=== PATIENT | male | born 1960 | race Caucasian/White ===

== ENCOUNTER 2021-04-22 06:50 | Inpatient (IN) | payer BC, OTHER ==
[~2021-04-22] VITALS: Ht 175.2 cm; Wt 94.5 kg
[2021-04-22 07:12] VITALS: BP 125/89
[2021-04-22 08:00] VITALS: BP 128/82
[2021-04-22 08:05] LABS: BASO % 0.2 % (0.0-1.0); LYMPH # 0.5 10*3/uL (1.3-4.4); LYMPH % 9.1 % (27.0-41.0); MEAN CELL VOLUME 84.7 fl (80.0-94.0); MEAN CORPUSCULAR HGB 29.4 pg (27.0-31.0); MEAN CORPUSCULAR HGB CONC 34.7 g/dl (33.0-37.0); MEAN PLATELET VOLUME 11.9 fl (9.6-12.3); MONO # 0.6 10*3/uL (0.1-1.0); MONO % 11.8 % (3.0-9.0); NEUT # 4.1 10*3/uL (2.3-7.9); NEUT % 78.3 % (47.0-73.0); PLATELET COUNT AUTOMATED 149 10*3/uL (130-400); RED BLOOD COUNT 5.31 10*6/uL (4.50-5.90); RED CELL DISTRI WIDTH 12.4 % (0-14.5); WHITE BLOOD COUNT 5.2 10*3/uL (4.8-10.8)
[2021-04-22 08:15] LABS: ACT PARTIAL THROMBO TIME 37.5 SECONDS (20.0-32.1)
[2021-04-22 08:19] LABS: ALBUMIN 2.4 gm/dl (3.1-4.5); ALKALINE PHOSPHATASE 51 U/L (45-117); BUN 8 mg/dl (7-24); CHLORIDE 88 mmol/L (98-107); CREATININE 0.66 mg/dL (0.70-1.30); LIPASE 382 U/L (73-393); POTASSIUM 3.4 mmol/L (3.5-5.1); SGOT/AST 180 IU/L (3-35); SGPT/ALT 125 U/L (12-78); SODIUM 122 mmol/L (136-145); TOTAL PROTEIN 6.3 gm/dL (6.4-8.2)
[2021-04-22 08:20] LABS: TROPONIN I < 0.015 ng/ml (<0.045)
[2021-04-22 10:57] VITALS: BP 121/77
[2021-04-22 16:00] VITALS: BP 106/70
[2021-04-22] MEDS ORDERED: PRILOSEC20 M1 PO (19:17)
[2021-04-22 20:00] VITALS: BP 106/73; BP 128/82
[2021-04-23] VITALS: BP 101/76
[2021-04-23 00:58] LABS: ABG BASE EXCESS 3.1 mmol/L (-2.0-2.0); ARTERIAL BLOOD GAS PH 7.502 (7.35-7.45); ARTERIAL BLOOD GAS PO2 59.6 (80-90)
[2021-04-23 06:10] LABS: ALBUMIN 2.5 gm/dl (3.1-4.5); ALKALINE PHOSPHATASE 54 U/L (45-117); BUN 13 mg/dl (7-24); CHLORIDE 100 mmol/L (98-107); CHOLESTEROL 110 mg/dL (<200); CREATININE 0.85 mg/dL (0.70-1.30); LDH 639 U/L (87-241); LDL CHOLESTEROL 36 mg/dL (9-159); POTASSIUM 3.7 mmol/L (3.5-5.1); SGOT/AST 176 IU/L (3-35); SGPT/ALT 147 U/L (12-78); TOTAL PROTEIN 6.6 gm/dL (6.4-8.2); TRIGLYCERIDES 77 mg/dl (<150)
[2021-04-23 06:23] LABS: FREE T4 0.99 ng/dl (0.76-1.46)
[2021-04-23 06:29] LABS: CPK 2640 U/L (39-308); SODIUM 136 mmol/L (136-145)
[2021-04-23 07:03] LABS: BASO % 0.3 % (0.0-1.0); HEMATOCRIT 47.2 % (42.0-52.0); LYMPH # 0.9 10*3/uL (1.3-4.4); LYMPH % 13.4 % (27.0-41.0); MEAN CELL VOLUME 86.8 fl (80.0-94.0); MEAN CORPUSCULAR HGB 29.6 pg (27.0-31.0); MEAN CORPUSCULAR HGB CONC 34.1 g/dl (33.0-37.0); MEAN PLATELET VOLUME 11.4 fl (9.6-12.3); MONO # 0.8 10*3/uL (0.1-1.0); MONO % 10.8 % (3.0-9.0); NEUT # 5.2 10*3/uL (2.3-7.9); NEUT % 74.6 % (47.0-73.0); RED BLOOD COUNT 5.44 10*6/uL (4.50-5.90); RED CELL DISTRI WIDTH 12.9 % (0-14.5)
[2021-04-23 07:04] LABS: PLATELET COUNT AUTOMATED 208 10*3/uL (130-400)
[2021-04-23 08:00] VITALS: BP 112/75
[2021-04-23 08:23] LABS: VITAMIN D, 25-HYDROXY 30.9 ng/mL (30-100)
[2021-04-23 08:24] LABS: FERRITIN 1473.8 ng/mL (22.0-322.0)
[2021-04-23 10:08] LABS: ABG BASE EXCESS 0.7 mmol/L (-2.0-2.0); ARTERIAL BLOOD GAS PH 7.507 (7.35-7.45)
[2021-04-23 12:00] VITALS: BP 107/72
[2021-04-23 16:00] VITALS: BP 122/72
[2021-04-23 20:00] VITALS: BP 128/78
[2021-04-24] VITALS: BP 123/53
[2021-04-24 08:00] VITALS: BP 110/74
[2021-04-24 08:29] LABS: BASO % 0.2 % (0.0-1.0); HEMATOCRIT 48.9 % (42.0-52.0); LYMPH % 15.2 % (27.0-41.0); MEAN CELL VOLUME 89.1 fl (80.0-94.0); MEAN CORPUSCULAR HGB 29.1 pg (27.0-31.0); MEAN CORPUSCULAR HGB CONC 32.7 g/dl (33.0-37.0); MEAN PLATELET VOLUME 11.3 fl (9.6-12.3); MONO # 0.7 10*3/uL (0.1-1.0); MONO % 10.4 % (3.0-9.0); NEUT # 4.8 10*3/uL (2.3-7.9); NEUT % 72.5 % (47.0-73.0); PLATELET COUNT AUTOMATED 246 10*3/uL (130-400); RED BLOOD COUNT 5.49 10*6/uL (4.50-5.90); RED CELL DISTRI WIDTH 13.1 % (0-14.5); WHITE BLOOD COUNT 6.7 10*3/uL (4.8-10.8)
[2021-04-24 08:47] LABS: ALBUMIN 2.5 gm/dl (3.1-4.5); ALKALINE PHOSPHATASE 53 U/L (45-117); BUN 15 mg/dl (7-24); CHLORIDE 103 mmol/L (98-107); CREATININE 0.76 mg/dL (0.70-1.30); LDH 606 U/L (87-241); POTASSIUM 4.1 mmol/L (3.5-5.1); SGOT/AST 119 IU/L (3-35); SODIUM 138 mmol/L (136-145); TOTAL PROTEIN 6.5 gm/dL (6.4-8.2)
[2021-04-24 08:59] LABS: SGPT/ALT 133 U/L (12-78)
[2021-04-24 09:06] LABS: CPK 1277 U/L (39-308)
[2021-04-24 12:00] VITALS: BP 115/82
[2021-04-24 16:00] VITALS: BP 132/70
[2021-04-24 18:00] VITALS: BP 132/70
[2021-04-25] VITALS: BP 122/56
[2021-04-25 07:11] LABS: BASO % 0.2 % (0.0-1.0); HEMATOCRIT 45.3 % (42.0-52.0); LYMPH # 1.1 10*3/uL (1.3-4.4); LYMPH % 13.1 % (27.0-41.0); MEAN CELL VOLUME 86.8 fl (80.0-94.0); MEAN CORPUSCULAR HGB 29.1 pg (27.0-31.0); MEAN CORPUSCULAR HGB CONC 33.6 g/dl (33.0-37.0); MEAN PLATELET VOLUME 11.1 fl (9.6-12.3); MONO # 0.6 10*3/uL (0.1-1.0); MONO % 6.4 % (3.0-9.0); NEUT # 6.9 10*3/uL (2.3-7.9); NEUT % 79.5 % (47.0-73.0); PLATELET COUNT AUTOMATED 289 10*3/uL (130-400); RED BLOOD COUNT 5.22 10*6/uL (4.50-5.90); RED CELL DISTRI WIDTH 12.9 % (0-14.5); WHITE BLOOD COUNT 8.7 10*3/uL (4.8-10.8)
[2021-04-25 07:35] LABS: CHLORIDE 100 mmol/L (98-107); POTASSIUM 3.7 mmol/L (3.5-5.1); SODIUM 136 mmol/L (136-145)
[2021-04-25 07:45] LABS: ALBUMIN 2.5 gm/dl (3.1-4.5); ALKALINE PHOSPHATASE 62 U/L (45-117); BUN 15 mg/dl (7-24); CREATININE 0.69 mg/dL (0.70-1.30); LDH 591 U/L (87-241); SGOT/AST 79 IU/L (3-35); SGPT/ALT 121 U/L (12-78); TOTAL PROTEIN 6.2 gm/dL (6.4-8.2)
[2021-04-25 07:47] LABS: CPK 667 U/L (39-308)
[2021-04-25 08:00] VITALS: BP 130/73
[2021-04-25 12:00] VITALS: BP 104/68
[2021-04-25] MEDS ORDERED: DECADRON6 M1 PO (13:41)
== END 2021-04-25 16:57 | disposition home health service (06) | DRG 871 ==
LOC: ED 06:50 → EDHOLD 10:48 → 4E 10:48
PROVIDERS: Emergency Medicine; Hospitalist; Registered Nurse; ADMIT Student in an Organized Health Care Education/Training Program; ATTEND Student in an Organized Health Care Education/Training Program
PROC: 5A09357 Assistance with Respiratory Ventilation, Less than 24 Consecutive Hours, Continuous Positive Airway Pressure (ICD-10-PCS; principal; 2021-04-22)
PROC: XW033E5 Introduction of Remdesivir Anti-infective into Peripheral Vein, Percutaneous Approach, New Technology Group 5 (ICD-10-PCS; 2021-04-22)
PROC: 5A09357 Assistance with Respiratory Ventilation, Less than 24 Consecutive Hours, Continuous Positive Airway Pressure (ICD-10-PCS; 2021-04-23)
PROC: 5A0935A Assistance with Respiratory Ventilation, Less than 24 Consecutive Hours, High Flow/Velocity Cannula (ICD-10-PCS; 2021-04-23)
PROC: 5A09357 Assistance with Respiratory Ventilation, Less than 24 Consecutive Hours, Continuous Positive Airway Pressure (ICD-10-PCS; 2021-04-24)
PROC: 5A0935A Assistance with Respiratory Ventilation, Less than 24 Consecutive Hours, High Flow/Velocity Cannula (ICD-10-PCS; 2021-04-25)
DX: A41.89 Other specified sepsis (principal); U07.1 COVID-19; J12.82 Pneumonia due to coronavirus disease 2019; J96.01 Acute respiratory failure with hypoxia; N17.1 Acute kidney failure with acute cortical necrosis; E43 Unspecified severe protein-calorie malnutrition; E87.1 Hypo-osmolality and hyponatremia; R65.20 Severe sepsis without septic shock; E86.0 Dehydration; E66.9 Obesity, unspecified; R74.01 Elevation of levels of liver transaminase levels; E87.8 Other disorders of electrolyte and fluid balance, not elsewhere classified; E87.6 Hypokalemia; R73.9 Hyperglycemia, unspecified; E83.51 Hypocalcemia; Z68.31 Body mass index [BMI] 31.0-31.9, adult

== ENCOUNTER → 2021-05-21 | Outpatient (CLI) | payer BC, OTHER ==
[~2021-05-21] MED LIST: DECADRON6 M1 PO; PRILOSEC20 M1 PO
== END | disposition home or self-care (01) ==
LOC: US 08:06
PROVIDERS: ATTEND Internal Medicine
DX: I73.9 Peripheral vascular disease, unspecified (principal); R06.02 Shortness of breath

== ENCOUNTER → 2023-04-29 | Outpatient (CLI) | payer BC | END | disposition home or self-care (01) | LOC: US 08:28 | PROVIDERS: ATTEND Internal Medicine | DX: K76.0 Fatty (change of) liver, not elsewhere classified (principal); R74.01 Elevation of levels of liver transaminase levels ==

== ENCOUNTER → 2023-05-19 | Outpatient (CLI) | payer BC | END | disposition home or self-care (01) | LOC: US 03:04 | PROVIDERS: ATTEND Urology | DX: N28.1 Cyst of kidney, acquired (principal); N40.0 Benign prostatic hyperplasia without lower urinary tract symptoms ==

== ENCOUNTER → 2023-05-29 | Outpatient (CLI) | payer BC ==
[2023-05-29 08:40] LABS: BASO # 0.1 10*3/uL (0.0-0.1); BASO % 0.9 % (0.0-1.0); EOS # 0.1 10*3/uL (0.0-0.4); EOS % 1.7 % (1.0-4.0); HEMATOCRIT 47.8 % (42.0-52.0); LYMPH # 2.2 10*3/uL (1.3-4.4); LYMPH % 32.1 % (27.0-41.0); MEAN CELL VOLUME 92.1 fl (80.0-94.0); MEAN CORPUSCULAR HGB 30.3 pg (27.0-31.0); MEAN CORPUSCULAR HGB CONC 32.8 g/dl (33.0-37.0); MEAN PLATELET VOLUME 12.1 fl (9.6-12.3); MONO # 0.8 10*3/uL (0.1-1.0); MONO % 11.6 % (3.0-9.0); NEUT # 3.7 10*3/uL (2.3-7.9); NEUT % 53.3 % (47.0-73.0); PLATELET COUNT AUTOMATED 217 10*3/uL (130-400); RED BLOOD COUNT 5.19 10*6/uL (4.50-5.90); RED CELL DISTRI WIDTH 13.4 % (0-14.5); WHITE BLOOD COUNT 6.9 10*3/uL (4.8-10.8)
[2023-05-29 09:02] LABS: ALKALINE PHOSPHATASE 66 U/L (46-116); BUN 17 mg/dl (9-23); CHLORIDE 108 mmol/L (98-107); POTASSIUM 4.3 mmol/L (3.4-5.1); SGPT/ALT 23 U/L (5-49); TOTAL PROTEIN 7.2 gm/dL (6.0-8.0)
== END | disposition home or self-care (01) ==
LOC: LAB 01:22
PROVIDERS: ATTEND Urology
DX: Z01.818 Encounter for other preprocedural examination (principal); R94.31 Abnormal electrocardiogram [ECG] [EKG]

== ENCOUNTER 2024-02-04 03:39 | Emergency (ER) | payer BC ==
[~2024-02-04] VITALS: Ht 175.2 cm; Wt 99.8 kg
[2024-02-04] MEDS ORDERED: Lidocaine Hydrochloride 10 ML SYR UR ONE ×2 (04:05→04:40)
== END 2024-02-04 05:12 | disposition short-term general hospital (02) ==
LOC: ED 03:39
DX: R33.9 Retention of urine, unspecified (principal); I10 Essential (primary) hypertension; E83.51 Hypocalcemia; E87.1 Hypo-osmolality and hyponatremia; E87.6 Hypokalemia; Z98.890 Other specified postprocedural states

== ENCOUNTER → 2024-02-09 | Outpatient (CLI) | payer BC ==
[2024-02-09 07:48] LABS: BASO # 0.1 10*3/uL (0.0-0.1); BASO % 0.8 % (0.0-1.0); EOS # 0.2 10*3/uL (0.0-0.4); EOS % 2.5 % (1.0-4.0); HEMATOCRIT 54.3 % (42.0-52.0); LYMPH # 1.8 10*3/uL (1.3-4.4); LYMPH % 22.1 % (27.0-41.0); MEAN CELL VOLUME 90.3 fl (80.0-94.0); MEAN CORPUSCULAR HGB 30.4 pg (27.0-31.0); MEAN CORPUSCULAR HGB CONC 33.7 g/dl (33.0-37.0); MEAN PLATELET VOLUME 12.1 fl (9.6-12.3); MONO # 0.8 10*3/uL (0.1-1.0); MONO % 9.7 % (3.0-9.0); NEUT # 5.3 10*3/uL (2.3-7.9); NEUT % 64.5 % (47.0-73.0); PLATELET COUNT AUTOMATED 238 10*3/uL (130-400); RED BLOOD COUNT 6.01 10*6/uL (4.50-5.90); RED CELL DISTRI WIDTH 13.9 % (0-14.5); WHITE BLOOD COUNT 8.3 10*3/uL (4.8-10.8)
[2024-02-09 07:51] LABS: BILIRUBIN Negative (Negative); BLOOD 3+ (Negative); CLARITY Clear (Clear); COLOR Yellow (Yellow); GLUCOSE Negative (Negative); KETONE Negative (Negative); LEUKO ESTERASE 1+ (Negative); NITRITE Negative (Negative); PH 5.5 (4.5-8.0)
[2024-02-09 08:44] LABS: BACTERIA 1+; EPITHELIAL CELLS 0-2; RBC TNTC rbc/hpf (0-2)
[2024-02-09 08:45] LABS: ALKALINE PHOSPHATASE 73 U/L (46-116); BUN 14 mg/dl (9-23); CHLORIDE 104 mmol/L (98-107); POTASSIUM 4.9 mmol/L (3.4-5.1); SGPT/ALT 31 U/L (5-49); TOTAL PROTEIN 7.9 gm/dL (6.0-8.0)
== END | disposition home or self-care (01) ==
LOC: LAB 02-08 15:37
PROVIDERS: ATTEND Urology
DX: N39.0 Urinary tract infection, site not specified (principal); R97.20 Elevated prostate specific antigen [PSA]

== ENCOUNTER → 2024-03-24 | Outpatient (CLI) | payer MEDICARE ==
[2024-03-30 19:06] LABS: % FREE PSA 28.6 % (.); FREE PSA 1.64 ng/mL (.)
== END | disposition home or self-care (01) ==
LOC: LAB 07:16
PROVIDERS: Urology; ATTEND Emergency Medicine
DX: D40.0 Neoplasm of uncertain behavior of prostate (principal); R53.83 Other fatigue

== ENCOUNTER → 2024-10-04 | Outpatient (CLI) | payer OTHER ==
[2024-10-04 08:16] LABS: BASO # 0.1 10*3/uL (0.0-0.1); BASO % 0.8 % (0.0-1.0); EOS # 0.1 10*3/uL (0.0-0.4); EOS % 1.5 % (1.0-4.0); HEMATOCRIT 45.8 % (42.0-52.0); MEAN CELL VOLUME 88.2 fl (80.0-94.0); MEAN CORPUSCULAR HGB 30.3 pg (27.0-31.0); MEAN CORPUSCULAR HGB CONC 34.3 g/dl (33.0-37.0); MEAN PLATELET VOLUME 11.9 fl (9.6-12.3); MONO # 0.9 10*3/uL (0.1-1.0); MONO % 12.1 % (3.0-9.0); NEUT % 53.4 % (47.0-73.0); PLATELET COUNT AUTOMATED 230 10*3/uL (130-400); RED BLOOD COUNT 5.19 10*6/uL (4.50-5.90); RED CELL DISTRI WIDTH 13.6 % (0-14.5); WHITE BLOOD COUNT 7.6 10*3/uL (4.8-10.8)
[2024-10-04 08:46] LABS: ALKALINE PHOSPHATASE 85 U/L (46-116); BUN 17 mg/dl (9-23); CHLORIDE 104 mmol/L (98-107); POTASSIUM 3.8 mmol/L (3.4-5.1); SGPT/ALT 33 U/L (5-49); TOTAL PROTEIN 7.4 gm/dL (6.0-8.0)
== END | disposition home or self-care (01) ==
LOC: LAB 07:40
PROVIDERS: ATTEND Urology
DX: C61 Malignant neoplasm of prostate (principal); R53.83 Other fatigue

== ENCOUNTER → 2024-11-16 | Outpatient (CLI) | payer OTHER | END | disposition home or self-care (01) | LOC: US 08:55 | PROVIDERS: ATTEND Urology | DX: N28.1 Cyst of kidney, acquired (principal); R53.83 Other fatigue; R97.20 Elevated prostate specific antigen [PSA]; Z12.5 Encounter for screening for malignant neoplasm of prostate ==

== ENCOUNTER → 2025-03-23 | Outpatient (CLI) | payer OTHER ==
[~2025-03-23] MED LIST changes: +GADOTERATE MEGLUMINE 5 MMOL/10 ML VIAL IV ONE; +GADOTERATE MEGLUMINE 7.5 MMOL/15 ML VIAL IV ONE
== END | disposition home or self-care (01) ==
LOC: MRI 08:54
PROVIDERS: ATTEND Nurse Practitioner
DX: E29.9 Testicular dysfunction, unspecified (principal); R79.89 Other specified abnormal findings of blood chemistry

== ENCOUNTER → 2025-05-10 | Outpatient (CLI) | payer OTHER ==
[~2025-05-10] MED LIST changes: -GADOTERATE MEGLUMINE 5 MMOL/10 ML VIAL IV ONE; -GADOTERATE MEGLUMINE 7.5 MMOL/15 ML VIAL IV ONE
[2025-05-10 13:56] LABS: BASO # 0.1 10*3/uL (0.0-0.1); BASO % 0.7 % (0.0-1.0); EOS # 0.2 10*3/uL (0.0-0.4); EOS % 2.0 % (1.0-4.0); MEAN CELL VOLUME 92.0 fl (80.0-94.0); MEAN CORPUSCULAR HGB 30.4 pg (27.0-31.0); MEAN PLATELET VOLUME 11.5 fl (9.6-12.3); MONO # 1.0 10*3/uL (0.1-1.0); MONO % 10.0 % (3.0-9.0); NEUT # 6.1 10*3/uL (2.3-7.9); NEUT % 64.1 % (47.0-73.0); NUCLEATED RED BLOOD CELL 0.0 % (0.0-0.0); NUCLEATED RED BLOOD CELL 0.0 10*3/uL (0.0-0.0); PLATELET COUNT AUTOMATED 222 10*3/uL (130-400); RED CELL DISTRI WIDTH 14.3 % (0-14.5)
[2025-05-10 14:25] LABS: BUN 13 mg/dl (9-23); SGPT/ALT 24 U/L (5-49)
== END | disposition home or self-care (01) ==
LOC: US 13:00 → LAB 13:02
PROVIDERS: ATTEND Nurse Practitioner
DX: N43.3 Hydrocele, unspecified (principal); R97.20 Elevated prostate specific antigen [PSA]; E29.1 Testicular hypofunction; N50.819 Testicular pain, unspecified; R53.83 Other fatigue; Z12.5 Encounter for screening for malignant neoplasm of prostate

== ENCOUNTER → 2025-07-04 | Outpatient (CLI) | payer OTHER ==
[2025-07-04 09:06] LABS: BASO # 0.1 10*3/uL (0.0-0.1); BASO % 0.7 % (0.0-1.0); EOS # 0.1 10*3/uL (0.0-0.4); EOS % 1.9 % (1.0-4.0); MEAN CELL VOLUME 89.0 fl (80.0-94.0); MEAN CORPUSCULAR HGB 30.1 pg (27.0-31.0); MEAN PLATELET VOLUME 12.1 fl (9.6-12.3); MONO # 0.8 10*3/uL (0.1-1.0); MONO % 11.7 % (3.0-9.0); NEUT # 3.7 10*3/uL (2.3-7.9); NEUT % 54.7 % (47.0-73.0); NUCLEATED RED BLOOD CELL 0.0 % (0.0-0.0); NUCLEATED RED BLOOD CELL 0.0 10*3/uL (0.0-0.0); PLATELET COUNT AUTOMATED 202 10*3/uL (130-400); RED CELL DISTRI WIDTH 13.1 % (0-14.5)
[2025-07-04 09:36] LABS: BUN 20 mg/dl (9-23); SGPT/ALT 24 U/L (5-49)
== END | disposition home or self-care (01) ==
LOC: LAB 08:38
PROVIDERS: ATTEND Nurse Practitioner
DX: Z12.5 Encounter for screening for malignant neoplasm of prostate (principal); R53.83 Other fatigue; E29.1 Testicular hypofunction; D40.0 Neoplasm of uncertain behavior of prostate